=== PATIENT | female | born 1965 | race Caucasian/White ===

== ENCOUNTER 2020-02-20 07:45 | Day surgery (SDC) | payer OTHER ==
[~2020-02-20 07:45] MED LIST: Sodium Chloride 0.9% 10 ML Syringe FLUSH PRN; cefOXitin 2 GM in Sodium Chloride 0.9% 100 ML IV ONE
[2020-02-20] MEDS ORDERED: Rocuronium 100 MG/10 ML MDV IV ONE (07:46)
[2020-02-20] MEDS ORDERED: Ketorolac 30 MG/ML SDV IVPUSH ONE (07:46)
[2020-02-20] MEDS ORDERED: Lactated Ringers 1,000 ML IV ONE (07:46)
[2020-02-20] MEDS ORDERED: Dexamethasone 4 MG/ML 5 ML MDV IVPUSH ONE (07:46)
[2020-02-20] MEDS ORDERED: Glycopyrrolate 0.2 MG/ML 5 ML MDV IV ONE (07:46)
[2020-02-20] MEDS ORDERED: Neostigmine Methylsulfate 10 MG/10 ML MDV IVPUSH ONE (07:46)
[2020-02-20] MEDS ORDERED: Succinylcholine 200 MG/10 ML MDV IV ONE (07:46)
[2020-02-20] MEDS ORDERED: ePHEDrine 50 MG/ML SDV IV ONE (07:46)
[2020-02-20] MEDS ORDERED: Ondansetron 4 MG/2 ML SDV IVPUSH ONE (07:46)
[2020-02-20] MEDS ORDERED: Midazolam 1 MG/ML 2 ML SDV IV ONE (07:46)
[2020-02-20] MEDS ORDERED: Sugammadex Sodium 200 MG/2 ML VIAL IV ONE (07:46)
[2020-02-20] MEDS ORDERED: Lidocaine 2% 5 ML SDV INJECT ONE (07:46)
[2020-02-20] MEDS ORDERED: fentaNYL 100 MCG/2 ML SDV IV ONE (07:46)
[2020-02-20] MEDS ORDERED: Propofol 200 MG/20 ML SDV IV ONE (07:46)
[2020-02-20] MEDS: Lactated Ringers 1,000 ML IV SCH (08:52)
[2020-02-20] MEDS: cefOXitin 2 GM Vial IVPUSH ONE (09:01)
[2020-02-20] MEDS: Bupivacaine 0.5% 30 ML SDV INJECT ONE (09:31)
[2020-02-20] MEDS: Lidocaine 1% with EPINEPHrine 1:100,000 20 ML MDV INJECT ONE (09:32)
--- NOTE | 2020-02-20 10:07 | PCM.OPNOTE ---
- General Post-Op/Procedure Note Date of Surgery/Procedure: 02/20/20 Operative Procedure(s): lap cholecystectomy Findings: critical view obtained. had a short cystic duct Pre Op Diagnosis: cholelithiasis without obstruction or cholecystitis Post-Op Diagnosis: Same Anesthesia Technique: General ET Tube, Local (10 ml 1 % lido with epi/0.5% buvipicaine) Primary Surgeon: Martin Servin Anesthesia Provider: Johnathan Chairez Pathology: gallbladder and contents Complications: None Condition: Good Free Text/Narrative:: see dictation
[2020-02-20] MEDS: Acetaminophen/HYDROcodone 325-5 MG Tab PO PRN (11:40)
--- NOTE | 2020-02-20 14:41 | OR ---
DATE OF OPERATION: 02/20/2020 SURGEON: Martin Servin MD PROCEDURE PERFORMED: Laparoscopic cholecystectomy. PREOPERATIVE DIAGNOSIS: Cholelithiasis without obstruction or cholecystitis. POSTOPERATIVE DIAGNOSIS: Cholelithiasis without obstruction or cholecystitis. INDICATIONS FOR PROCEDURE: This is a 54-year-old white female who has had a history of intermittent biliary colic. Recently, she has had an increase in frequency of attacks and was felt to require a cholecystectomy prior to her having serious complications due to this disease. INTRAOPERATIVE FINDINGS: A critical view was obtained. It should be noted she had a short cystic duct. A single stone was noted in the gallbladder itself. A total of 10 mL of 1:1 mixture of 1% lidocaine with epinephrine and 0.5% bupivacaine were used for infiltration of the sites for the trocars. DESCRIPTION OF OPERATION: After an excellent general anesthetic was administered via endotracheal tube, the patient was prepped and draped in usual sterile manner. We injected the area just below the midline of the umbilicus with a 1:1 mixture of 1% lidocaine with epinephrine and made a small vertical midline incision. Blunt dissection was carried out, exposing the anterior abdominal wall. Two stay sutures of 0 Vicryl were placed on either side of the midline fascia, which allowed us to elevate the fascia and incise the midline. The abdominal cavity was entered sharply, and after digital palpation to ensure that there were no adhesions, the 10.5 mm Ragini trocar was inserted into the patient's abdomen. Under direct visualization, three 5 mm ports were placed, 1 in the midline epigastrium and 2 below the right costal margin at the approximate level of the midclavicular and anterior axillary lines. This was done using the identical technique of infiltration of the abdominal wall, making stab incisions with a scalpel, and then inserting the trocars. Gallbladder was noted to be tense. An aspiration needle was passed through a 5 mm port and approximately 20 mL of bile was removed that allowed us to easily grasp the gallbladder. The gallbladder was then grasped and retracted in a cephalad fashion. Some adhesions were taken down using careful sharp and blunt dissection. A single stone was noted to be jammed in the infundibulum. We were able to apply some gentle pressure and get this to go back into the main body of the gallbladder, allowing us to grasp the infundibulum. Careful dissection was carried out, exposing the cystic duct and the cystic artery. It should be noted that the common bile duct had a rather prominent curve and the cystic duct itself was relatively short, but after careful dissection, we got an excellent view that required critical view. Two clips were then placed proximally on the cystic duct and 1 distally. This was then transected. Two clips were placed proximally on the cystic artery and 1 distally, and this was transected as well. Careful L-hook cautery dissection was carried out, dissecting the gallbladder free from the gallbladder fossa. Specimen was passed into a specimen bag and delivered out through the umbilical port. The area was irrigated, and the gutter along the right lobe of the liver was also irrigated until clear. Trocars removed under direct visualization, and the pneumoperitoneum was released. [id number] 0 Vicryl was then used to close the midline fascia. Estella were used to close the skin. Needle, sponge, and instrument counts were reported as correct. The patient was taken to recovery room in good condition. /[id number] /MODL
== END 2020-02-20 12:28 | disposition home or self-care (01) ==
LOC: FB.SDS 07:45
PROVIDERS: ATTEND Surgery
DX: K80.00 Calculus of gallbladder with acute cholecystitis without obstruction (principal); E66.01 Morbid (severe) obesity due to excess calories; Z87.891 Personal history of nicotine dependence; Z68.41 Body mass index [BMI] 40.0-44.9, adult
CPT/HCPCS: 88304; A9270-GY; J0330; J0694; J1100; J1885; J2001; J2250; J2405; J2704; J2710; J3010; J3490; J7120

== ENCOUNTER 2023-08-03 08:32 | Day surgery (SDC) | payer OTHER ==
[~2023-08-03 08:32] MED LIST changes: -cefOXitin 2 GM in Sodium Chloride 0.9% 100 ML IV ONE
[2023-08-03] MEDS ORDERED: Propofol 200 MG/20 ML SDV IV ONE (08:33)
[2023-08-03] MEDS ORDERED: Lidocaine 2% 5 ML SDV IV ONE (08:33)
[2023-08-03] MEDS: Lactated Ringers 1,000 ML IV SCH (09:40)
[2023-08-03 10:23] VITALS: PULSE 56
[2023-08-03] MEDS: Simethicone Drops 40 MG/0.6 ML 30 ML Bottle PO ONE (10:35)
[2023-08-03 12:25] VITALS: BP 106/67
[2023-08-05 21:59] LABS: LACTOFERRIN,FECAL BY ELISA Negative (Negative)
[2023-08-06 06:54] LABS: ADENOVIRUS 40/41 PCR Not Detected; ASTROVIRUS PCR Not Detected; CAMPYLOBACTER PCR Not Detected; CRYPTOSPORIDIUM PCR Not Detected; CYCLOSPORA CAYETANENSIS PCR Not Detected; ENTAMOEBA HISTOLYTICA PCR Not Detected; ENTEROAGGREGATIVE E. COLI PCR Not Detected; ENTEROPATHOGENIC E. COLI PCR Not Detected; ENTEROTOXIGENIC E. COLI PCR Not Detected; GIARDIA LAMBLIA PCR Not Detected; NOROVIRUS GI/GII PCR Not Detected; PLESIOMONAS SHIGELLOIDES PCR Not Detected; ROTAVIRUS A PCR Not Detected; SALMONELLA PCR Not Detected; SAPOVIRUS PCR Not Detected; SHIG/ENTEROINVASIVE E COLI PCR Not Detected; SHIGA TOXIN-PRODUC E. COLI PCR Not Detected; VIBRIO CHOLERAE PCR Not Detected; VIBRIO PCR Not Detected; YERSINIA ENTEROCOLITICA PCR Not Detected
== END 2023-08-03 12:20 | disposition home or self-care (01) ==
LOC: FB.SDS 08:32
PROVIDERS: ATTEND Surgery
DX: R19.7 Diarrhea, unspecified (principal); K21.9 Gastro-esophageal reflux disease without esophagitis; F41.9 Anxiety disorder, unspecified; F32.A Depression, unspecified; E66.01 Morbid (severe) obesity due to excess calories; Z90.49 Acquired absence of other specified parts of digestive tract; Z86.010 Personal history of colon polyps; Z87.891 Personal history of nicotine dependence; Z68.39 Body mass index [BMI] 39.0-39.9, adult
CPT/HCPCS: 83630; 87507; 88305; A9270-GY; J2704; J7120